=== PATIENT | female | born 1960 | race Caucasian/White ===

== ENCOUNTER 2020-04-29 15:41 | Outpatient (CLI) | payer OTHER, SELFPAY ==
--- NOTE | ~2020-04-29 | MM_ITS ---
EXAMINATION: MM scrn rigoberto implant BI w amarjit HISTORY: Screening mammogram TECHNIQUE: Craniocaudal and mediolateral oblique 3-D tomosynthesis images with implant displacement a nd synthetic 2-D images were generated. Craniocaudal and mediolateral oblique views of the breasts wi thout implant displacement were obtained using full field digital mammography. CAD analysis was submi tted and interpreted. COMPARISON: 07/27/2018, 05/10/2017, 04/24/2016 BREAST PARENCHYMAL COMPOSITION: There are scattered areas of fibroglandular density. FINDINGS: There is no evidence of suspicious mass, calcification, or architectural distortion to sugg est malignancy in either breast. There has been no suspicious interval change. IMPRESSION: 1. No mammographic evidence of malignancy. 2. Recommend routine screening mammography in one year. BI-RADS Category 1: Negative Reviewed, dictated and finalized at location A. [employer]
== END 2020-04-29 15:42 | disposition home or self-care (01) ==
LOC: ANHIMG 15:58
PROVIDERS: PCP Internal Medicine; Visit Provider Obstetrics & Gynecology
DX: Z12.31 Encounter for screening mammogram for malignant neoplasm of breast (principal)
CPT/HCPCS: 77063; 77067

== ENCOUNTER 2021-05-30 14:50 | Outpatient (CLI) | payer OTHER, SELFPAY ==
--- NOTE | ~2021-05-30 | MM_ITS ---
EXAMINATION: MM scrn rigoberto implant BI w amarjit HISTORY: Screening mammogram TECHNIQUE: Craniocaudal and mediolateral oblique 3-D tomosynthesis images with implant displacement a nd synthetic 2-D images were generated. Craniocaudal and mediolateral oblique views of the breasts wi thout implant displacement were obtained using full field digital mammography. CAD analysis was submi tted and interpreted. COMPARISON: Comparison to multiple prior studies sequentially, with oldest reviewed study dated 04/19. BREAST PARENCHYMAL COMPOSITION: The breasts are heterogeneously dense, which may obscure small masses . FINDINGS: There is no evidence of suspicious mass, calcification, or architectural distortion to sugg est malignancy in either breast. There has been no suspicious interval change. IMPRESSION: 1. No mammographic evidence of malignancy. 2. Recommend routine screening mammography in one year. BI-RADS Category 1: Negative Reviewed, dictated and finalized at location A.
== END 2021-05-30 14:51 | disposition home or self-care (01) ==
LOC: ANHIMG 14:52
PROVIDERS: PCP Internal Medicine; Visit Provider Obstetrics & Gynecology
DX: Z12.31 Encounter for screening mammogram for malignant neoplasm of breast (principal)
CPT/HCPCS: 77063; 77067

== ENCOUNTER 2021-08-13 07:45 | Outpatient (CLI) | payer OTHER, SELFPAY ==
--- NOTE | ~2021-08-13 | DEXA_ITS ---
Bone Density Report Name: ROYAL IBRAHIM Age: 61 Sex: Female Ethnicity: White Date of : 1960 Indication: postmenopausal; screening for osteoporosis; asthma or emphysema; Referring Provider: CARLOS CARNEY Study: Bone densitometry was performed. Exam Date: August 13, 2021 Accession number: [id number] Bone Density: Region BMD T-score Z-score Classification AP Spine(L1, L2, L3) 1.148 1.2 2.7 Normal Femoral Neck (Left) 0.851 0.0 1.4 Normal Total Hip (Left) 1.026 0.7 1.7 Normal Femoral Neck (Right) 0.923 0.7 2.0 Normal Total Hip (Right) 1.015 0.6 1.7 Normal Total Hip Mean 1.020 0.7 1.7 Normal World Health Organization criteria for BMD impression classify patients as: Normal (T-score at or above -1.0), Osteopenia (T-score between -1.0 and -2.5), or Osteoporosis (T-score at or below -2.5). 10-year Fracture Risk: FRAX not reported because: All T-scores for Spine Total, Hip Total, Femoral Neck at or above -1.0 Previous Exams: Region Exam Age BMD T-score BMD Change BMD Change Date g/cm2 vs Baseline vs Previous AP Spine (L1-L3) 08/13/2021 61 1.148 1.2 -0.005 (-0.5%) -0.005 (-0.5%) 12/06/2015 55 1.153 1.2 Total Hip(Left) 08/13/2021 61 1.026 0.7 -0.036 (-3.4%) -0.036 (-3.4%) 12/06/2015 55 1.061 1.0 Total Hip(Right) 08/13/2021 61 1.015 0.6 -0.049 (-4.6%) -0.049 (-4.6%) 12/06/2015 55 1.064 1.0 *Denotes significance at 95% confidence level, LSC for AP Spine = 0.022 g/cm2, LSC for Total Hip = 0.027 g/cm2 Clinical Information Provided by Patient: Has the following medical conditions: Asthma or Emphysema Patient maximum height was 63 Menopause Age: 51 Drinks caffeinated beverages Onset of menses at age 13 Number of children 2 Impression: The patient has normal bone mass. The BMD for the Total Hip(Left) decreased, changing by -3.4% since the last DXA exam. The BMD for the Total Hip(Right) decreased, changing by -4.6% since the last DXA exam. Discussion: BONE DENSITY IS ABOVE THE MINIMUM DESIRABLE LEVEL AT ALL SKELETAL SITES TESTED. This patient?s bone mineral density is above the minimum desirable level (T-score -1.0 or better) at all sites measured. The patient should follow a healthful lifestyle (good nutrition with adequate calcium and vitamin D, and appropriate weight-bearing exercise). Follow-Up: Consider repeating this study in 3 to 4 years to reassess this patient's status, or sooner if there is s
== END 2021-08-13 07:46 | disposition home or self-care (01) ==
PROVIDERS: PCP Internal Medicine; Visit Provider Obstetrics & Gynecology
DX: Z78.0 Asymptomatic menopausal state (principal)
CPT/HCPCS: 77080

== ENCOUNTER 2022-04-01 19:49 | Emergency (ER) | payer OTHER, SELFPAY ==
[2022-04-01 20:03] VITALS: BP 134/83; PULSE 93; RESP 16; TEMP 36.2; O2SAT 98
--- NOTE | 2022-04-01 20:36 | ED.HA ---
HPI - Headache General Chief Complaint: Headache Stated Complaint: headache Time Seen by Provider: 04/01/22 20:27 History of Present Illness HPI Narrative: Patient is a 61-year-old female here for evaluation of migraine headache over the past day. Patient states that this feels identical to previous migraine headaches but it is now associated with nausea and vomiting and she has been unable to tolerate her migraine medications, which prompted ED eval. Notes countless episodes of vomiting nonbloody/nonbilious emesis. Denies abdominal pain, nausea, vomiting, fevers. Reports chronic neck pain but no worse than usual. Related Data Allergies Allergy/AdvReac Type Severity Reaction Status Date / Time meperidine Allergy Severe made pt Verified 04/01/22 20:06 mean codeine Allergy Mild vomiting Verified 04/01/22 20:06 Penicillins Allergy Mild Rash Verified 04/01/22 20:06 Sulfa (Sulfonamide Allergy Mild RASH Verified 04/01/22 20:06 Antibiotics) sulfanilamide Allergy Mild rash and Verified 04/01/22 20:06 nausea Review of Systems Review of Systems: Gen: Denies fevers or chills Eyes: Denies eye pain or visual change ENT: Denies congestion Respiratory: Denies shortness of breath or cough CV: Denies chest pain or palpitations GI: Denies abdominal pain nausea, emesis or diarrhea : denies burning, urgency, frequency or hematuria Musculoskeletal: Denies back pain or muscle pain Neuro: Reports headache. Denies numbness, tingling, weakness or focal weakness Skin: Denies rash Except as documented, all other systems reviewed and negative PMFSH Family History Family History Mother Patient's mother is in good health Father Patient's father is in good health Sibling Patient's sister is in good health Family history of diabetes mellitus in first degree relative Social History Social History Smoking status: Never smoker Second hand tobacco smoke exposure: No Alcohol intake: never Exam Narrative: APPEARANCE: Well appearing, no pain in distress, well-nourished. Head: Normocephalic and atraumatic. EYES: PERRLA/EOMI, conjunctivae clear NOSE: No nasal drainage EARS: External ear normal in appearance THROAT: Oropharynx is clear. Mucous membranes are moist. NECK: Supple. No adenopathy, no masses. RESPIRATORY: Airway patent, respirations nonlabored. Clear to auscultation bilaterally, no rales, rhonchi, wheezing. CARDIOVASCULAR: Regular rate and rhythm without murmurs, rubs, or gallops. ABDOMINAL: Normoactive bowel sounds. Soft, nontender, nondistended. No rebound tenderness or guarding. MUSCULOSKELETAL: Extremities are warm and well-perfused. Moves all extremities well. No edema. NEURO: Cranial nerves II through XII intact. 5/5 Probate Clerk strength. Normal speech. No focal neurologic deficits. SKIN: Skin is warm and dry. No rashes. PSYCHIATRIC: Normal affect/mood.. Course Vital Signs Vital signs: Vital Signs Temperature 97.1 F L 04/01/22 20:03 Pulse Rate 93 04/01/22 20:03 Respiratory Rate 16 04/01/22 20:03 Blood Pressure 134/83 04/01/22 20:03 Pulse Oximetry 98 04/01/22 20:03 Oxygen Delivery Room Air 04/01/22 20:03 Temperature 97.1 F L 04/01/22 20:03 Pulse Rate 63 04/01/22 23:00 Respiratory Rate 12 04/01/22 23:00 Blood Pressure 119/63 04/01/22 23:00 Pulse Oximetry 100 04/01/22 23:00 Oxygen Delivery Room Air 04/01/22 20:03 MDM - Headache MDM Narrative Medical decision making narrative: 51-year-old female with history of migraine headaches here for evaluation of her usual migraine but associated with nausea and vomiting, unfortunately unable to tolerate her p.o. meds. This patient presents with a headache most consistent with benign headache from either tension type headache vs migraine. No headache red flags. Neurologic exam without evidence of meningismus, AMS, focal
[2022-04-01] MEDS: SODIUM CHLORIDE 0.9% IV 1,000 ML 999 ML IV CONT (20:45)
[2022-04-01] MEDS: ONDANSETRON INJ 4 MG/2 ML VIAL IV PUSH (20:47)
[2022-04-01] MEDS: KETOROLAC 15 MG/ML VIAL (*BKC) IV PUSH (20:48)
[2022-04-01 22:06] VITALS: BP 149/87; PULSE 88; RESP 17; O2SAT 100
[2022-04-01] MEDS: SUMAtriptan SUCCINATE 25 MG TABLET 100 MG PO (22:10)
[2022-04-01 23:00] VITALS: BP 119/63; PULSE 63; RESP 12; O2SAT 100
== END 2022-04-01 23:00 | disposition home or self-care (01) ==
PROVIDERS: Emergency Provider Physician Assistant; PCP Internal Medicine
DX: G43.909 Migraine, unspecified, not intractable, without status migrainosus (principal)
CPT/HCPCS: 96361; 96374; 96375; 99284; A9270; J0131; J1885; J2405; J7030

== ENCOUNTER 2022-11-27 16:57 | Emergency (ER) | payer OTHER, SELFPAY ==
[2022-11-27 18:17] VITALS: BP 137/103; PULSE 84; RESP 18; TEMP 36.8; O2SAT 100
[2022-11-27 19:52] VITALS: BP 126/75; PULSE 86; RESP 20; TEMP 36.8; O2SAT 100
--- NOTE | 2022-11-27 21:34 | PC.NURSE ---
Pt did not want to wait any longer. Pt A&Ox4. Left before being seen.
== END 2022-11-27 21:38 | disposition left against medical advice (07) ==
PROVIDERS: PCP Internal Medicine
DX: G43.909 Migraine, unspecified, not intractable, without status migrainosus (principal)
CPT/HCPCS: 99199

== ENCOUNTER 2023-03-05 03:10 | Day surgery (SDC) | payer OTHER, SELFPAY ==
[2023-02-12 08:39] VITALS: BMI 19.8
--- NOTE | 2023-03-03 09:51 | SUR.PREOP ---
Patient called to see if she can come earlier on Mar 05. Message left on patient's voicemail.
--- NOTE | 2023-03-04 16:43 | PM.HPGS ---
History of Present Illness History of Present Illness Consent: Risks, benefits, and alternatives have been discussed and questions answered. Patient agrees to proceed with procedure. Chief complaint: fam hx colon ca Narrative: Deborah Victoria is a 62 year old female Referred for colon cancer screening. Review of Systems Review of Systems: All systems reviewed & are unremarkable except as noted in HPI and below PMFSH Family History Family History Mother Patient's mother is in good health Father Patient's father is in good health Sibling Patient's sister is in good health Family history of diabetes mellitus in first degree relative Social History Social History Smoking status: Never smoker Second hand tobacco smoke exposure: No Alcohol intake: never Substance use: unknown Substance use type: does not use Lack of Transportation: No Lack of Food: Never True Current Housing: I Have Housing Concerned About Future Housing: No Difficulty Paying Gas/Electric Bills: No Difficulty Paying for Meds: No Currently Unemployed: No Education: Trade/Vocational Certificate Difficulty w/ Childcare or Family Care: No Living arrangements: with family Spiritual care concerns: No Meds Home Medications and Allergies Home Medications Medication Instructions Recorded Confirmed Type albuterol sulfate 90 mcg/actuation 2 puff inhalation Q4-6H PRN 06/23/21 02/12/23 Rx aerosol inhaler (ProAir HFA) shortness of breath or wheezing #18 grams fluticasone 250 mcg-salmeterol 50 1 inh inhalation BID #180 ea 06/23/21 02/12/23 Rx mcg/dose blistr powdr for inhalation (Advair Diskus) azelastine 137 mcg (0.1 %) nasal 2 spray intranasal Q12H #30 mL 07/28/22 02/12/23 Rx spray aerosol sumatriptan succinate 100 mg tablet See Rx Instructions .Route 09/28/22 Rx .COMPLEX #10 tabs cefuroxime axetil 250 mg tablet 250 mg PO Q12H #20 tabs 09/30/22 02/12/23 Rx fexofenadine 180 mg tablet 180 mg PO DAILY PRN allergies 02/12/23 02/12/23 History (Katy Allergy) fluticasone propionate 50 2 spray intranasal DAILY PRN 02/12/23 02/12/23 History mcg/actuation nasal allergies spray,suspension (Flonase Allergy Relief) montelukast 10 mg tablet 10 mg PO DAILY PRN allergies 02/12/23 02/12/23 History (Singulair) Allergies Allergy/AdvReac Type Severity Reaction Status Date / Time meperidine Allergy Severe made pt Verified 03/05/23 09:21 mean codeine Allergy Mild vomiting Verified 03/05/23 09:21 Penicillins Allergy Mild Rash Verified 03/05/23 09:21 Sulfa (Sulfonamide Allergy Mild RASH Verified 03/05/23 09:21 Antibiotics) sulfanilamide Allergy Mild rash and Verified 03/05/23 09:21 nausea Exam Const: General: alert Orientation/consciousness: patient oriented x3 Resp: Auscultation: clear to auscultation bilaterally Cardio: Rate: regular rate Rhythm: regular rhythm GI: GI Palp: Yes Soft to palpation and No Tenderness to palpation present (GI) Neuro: General: patient oriented x3 Assessment and Plan Assessment and plan (1) Colon cancer screening: Code(s): Z12.11 - Encounter for screening for malignant neoplasm of colon Status: Acute Assessment and Plan: Colonoscopy with possible biopsy or polypectomy or cautery or injection of substances.
[2023-03-05 09:22] VITALS: BP 102/53; PULSE 96; RESP 20; TEMP 36.5; O2SAT 97
[2023-03-05] MEDS: LACTATED RINGERS 1,000 ML 150 ML IV CONT (09:32)
--- NOTE | 2023-03-05 09:51 | WPDANESEPPF ---
Anes - Initial Pre Proc Eval Procedure: Operation Date: 03/05/23 10:30 Proposed Procedures p Screening Colonoscopy - Dave Lopes MD Date/Time: 03/05/23 09:51 Surgeon: Dave Lopes MD Pre Op Diagnosis: fam hx colon ca Patient Data Age: 62 Gender: F Height: 1.63 m Weight: 48.5 kg Last Vital Signs Temp 97.7 F 03/05/23 09:22 Pulse 96 03/05/23 09:22 Resp 20 03/05/23 09:22 BP 102/53 L 03/05/23 09:22 Pulse Ox 97 03/05/23 09:22 O2 Del Method Room Air 03/05/23 09:22 Allergies Allergy/AdvReac Type Severity Reaction Status Date / Time meperidine Allergy Severe made pt Verified 03/05/23 09:21 mean codeine Allergy Mild vomiting Verified 03/05/23 09:21 Penicillins Allergy Mild Rash Verified 03/05/23 09:21 Sulfa (Sulfonamide Allergy Mild RASH Verified 03/05/23 09:21 Antibiotics) sulfanilamide Allergy Mild rash and Verified 03/05/23 09:21 nausea Home Medications Medication Instructions Recorded Confirmed Type albuterol sulfate 90 mcg/actuation 2 puff inhalation Q4-6H PRN 06/23/21 02/12/23 Rx aerosol inhaler (ProAir HFA) shortness of breath or wheezing #18 grams fluticasone 250 mcg-salmeterol 50 1 inh inhalation BID #180 ea 06/23/21 02/12/23 Rx mcg/dose blistr powdr for inhalation (Advair Diskus) azelastine 137 mcg (0.1 %) nasal 2 spray intranasal Q12H #30 mL 07/28/22 02/12/23 Rx spray aerosol sumatriptan succinate 100 mg tablet See Rx Instructions .Route 09/28/22 Rx .COMPLEX #10 tabs cefuroxime axetil 250 mg tablet 250 mg PO Q12H #20 tabs 09/30/22 02/12/23 Rx fexofenadine 180 mg tablet 180 mg PO DAILY PRN allergies 02/12/23 02/12/23 History (Katy Allergy) fluticasone propionate 50 2 spray intranasal DAILY PRN 02/12/23 02/12/23 History mcg/actuation nasal allergies spray,suspension (Flonase Allergy Relief) montelukast 10 mg tablet 10 mg PO DAILY PRN allergies 02/12/23 02/12/23 History (Archieir) Patient hx anesthesia problems: none Family hx anesthesia problems: none Results Review: All pre-operative results and documents have been reviewed as part of the pre-operative evaluation. [facility] Family History Family History Mother Patient's mother is in good health Father Patient's father is in good health Sibling Patient's sister is in good health Family history of diabetes mellitus in first degree relative Social History Social History Smoking status: Never smoker Second hand tobacco smoke exposure: No Alcohol intake: never Substance use: unknown Substance use type: does not use Lack of Transportation: No Lack of Food: Never True Current Housing: I Have Housing Concerned About Future Housing: No Difficulty Paying Gas/Electric Bills: No Difficulty Paying for Meds: No Currently Unemployed: No Education: Trade/Vocational Certificate Difficulty w/ Childcare or Family Care: No Living arrangements: with family Spiritual care concerns: No Anes - Eval Final PreProcedure Day of Procedure 03/05/23 09:51 Patient weight: normal Heart: regular rate and rhythm Lungs: clear to auscultation Airway: Mallampati scale class II Neurological: alert and oriented Last oral intake: >/= 8 hours ASA classification: II Emergent: no Anesthetic plan: proceed Anesthesia type and monitoring: general GIVS and standard monitoring Results Review: All pre-operative results and documents have been reviewed as part of the pre-operative evaluation. Informed Consent: The patient's anesthetic plan and its attendant risks and benefits were discussed with the patient/family/POA. Questions were solicited and answers provided to the satisfaction of the patient/family/POA.
[2023-03-05 10:35] VITALS: BP 99/56; PULSE 73; RESP 20; O2SAT 98
[2023-03-05 10:45] VITALS: BP 101/56; PULSE 81; RESP 20; O2SAT 99
[2023-03-05 10:55] VITALS: BP 117/71; PULSE 62; RESP 15; O2SAT 100
== END 2023-03-05 11:00 | disposition home or self-care (01) ==
PROVIDERS: PCP Internal Medicine; Referring Provider Obstetrics & Gynecology Gynecology; Visit Provider Internal Medicine Gastroenterology
PROC: 0DJD8ZZ Inspection of Lower Intestinal Tract, Via Natural or Artificial Opening Endoscopic (ICD-10-PCS; CPT 45378; principal; 2023-03-05 10:30)
DX: Z12.11 Encounter for screening for malignant neoplasm of colon (principal); Z80.0 Family history of malignant neoplasm of digestive organs; K64.8 Other hemorrhoids
CPT/HCPCS: 45378; J2704; J7120

== ENCOUNTER 2023-05-27 15:50 | Outpatient (CLI) | payer OTHER, SELFPAY ==
--- NOTE | ~2023-05-27 | XR_ITS ---
AP and oblique views of the bilateral ribs, and PA chest radiograph Clinical History: Pain Findings: No rib fracture is seen. Osseous alignment is anatomic. Lungs are clear, without focal cons olidation or pleural effusion. Cardiomediastinal contour is within normal limits. Soft tissues are un remarkable. Impression: No rib fracture is seen. Clear lungs. Reviewed, dictated and finalized at [facility]. Impression: No rib fracture is seen. Clear lungs.
== END 2023-05-27 15:51 ==
PROVIDERS: PCP Physician Assistant; Visit Provider Physician Assistant
DX: R07.9 Chest pain, unspecified (principal)
CPT/HCPCS: 71111

== ENCOUNTER 2023-06-04 08:14 | Outpatient (CLI) | payer OTHER, SELFPAY ==
--- NOTE | ~2023-06-04 | CT_ITS ---
EXAMINATION: CT abdomen pelvis w con DATE: 06/04/2023 13:09 INDICATION: Unspecified abdominal pain. Weight loss. Right flank pain. TECHNIQUE: Computed tomography (CT) of the abdomen and pelvis was performed with 100 L Omnipaque 350 intravenous contrast. Automated exposure control and iterative reconstruction technique were employed . The dose-length product was 204.62 mGy-cm. COMPARISON: None. FINDINGS: The visualized portions of the lung bases demonstrate mild atelectasis in right lower lobe. No pleural effusion. The heart size is normal. No pericardial effusion. Breast implants are noted. T he liver, gallbladder, spleen, pancreas, adrenal glands are normal. There are cysts in the kidneys me asuring up to 6 mm on the left. There are no dilated loops of bowel. The appendix is normal. The karen uterine and left ovarian veins are enlarged, consistent with pelvic venous insufficiency. There are n o pathologically enlarged lymph nodes. There is no free intraperitoneal fluid. There is severe thorac ic and lumbar spondylosis. Thoracolumbar dextroscoliosis is noted. IMPRESSION: 1. Pelvic venous insufficiency. Reviewed, dictated and finalized at location A.
[2023-06-04 08:31] LABS: Estimated Glomerular Filt Rate 56
== END 2023-06-04 08:15 ==
PROVIDERS: PCP Physician Assistant; Visit Provider Physician Assistant
DX: R10.9 Unspecified abdominal pain (principal); I87.2 Venous insufficiency (chronic) (peripheral)
CPT/HCPCS: 74177; Q9967

== ENCOUNTER 2024-09-21 07:48 | Outpatient (CLI) | payer OTHER, SELFPAY ==
--- OUTSIDE RECORDS SUMMARY | 2024-09-21 07:51 | XMS_ITS | Clinical Summary ---
Author Organization [facility] Virtual Care Address [address] [place] [address] Phone Care Team Providers Care Graduate Advisor Name Role Phone Malinda Coles MD Unavailable [phone] Rivera Sauceda DO Primary Care Provider [phone] Allergies Active Allergy Reactions Criticality Noted Date Comments Atorvastatin Headache Low 02/02/2022 Codeine Nausea & Vomiting Medium Penicillins Swelling Medium Sulfa (Sulfonamide Antibiotics) Swelling Medium Medications albuterol HFA (PROAIR HFA) 90 mcg/actuation inhaler inhale 2 puff by inhalation route every 4 - 6 hours as needed 0 Inhaler 0 6 Active ADVAIR DISKUS 250-50 mcg/dose diskus inhaler Take 1,000 puffs by mouth daily 11 7 Active montelukast (SINGULAIR) 10 mg tablet Take 1 tablet (10 mg total) by mouth daily 7 Active SUMAtriptan (IMITREX) 100 mg tabletIndicatio ns:Migraine Take 1 tablet (100 mg total) by mouth once as needed for migraine Active aspirin 81 mg enteric coated tabletIndicatio ns:Anomalous origin of coronary artery,History of non-ST elevation myocardial infarction (NSTEMI) Take 1 tablet (81 mg total) by mouth daily 30 tablet 11 3 Active Additional Information Patient not taking.Reported on 09/19/2024 inclisiran (Leqvio) 284 mg/1.5 mL syringe Inject 1.5 mL (284 mg total) under the skin every 6 (six) months Active Active Problems Problem Noted Date Diagnosed Date History of non-ST elevation myocardial infarctio n (NSTEMI) 10/26/2022 Hyperlipidemia LDL goal <70 07/07/2018 Migraine 07/07/2018 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 Asthma 12/30/2015 Overview (06/12/2016): Uncomplicated asthma, unspecified asthma severity 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 Overview (06/12/2016): Anomalous right coronary artery Encounters Date Type Department Care Team Description 09/19/2024 1:00 PM CDT Office Visit [facility] Cardiology [address] [place] [address] Pham Aguilera NP History of non-ST elevation myocardial infarction (NSTEMI); Anomalous right coronary artery; Hyperlipidemia LDL goal <70; Lipid screening from Last 3 Months Surgical History Surgery Date Site/Laterality Comments AUGMENTATION MAMMAPLASTY Medical History Medical History Date Comments Hx Other Medical seasonal allerg ies, asthma, anomalous right ling; Comments: [facility] 12/30/2015 - Asthma Family History Medical History Relation Name Comments Other Brother 2 Alive and well; Other Father Alive and well; Breast cancer Maternal Grandmother Other Mother Alive and well; Other Sister 2 Alive and well; Relation Name Status Comments Brother 1 Alive Brother 2 Father Alive Maternal Grandmother Mother Alive Sister 1 Alive Sister 2 Social History Tobacco Use Types Packs/Day Years Used Date Smoking Tobacco: Never Smokeless Tobacco: Never Tobacco Cessation:Counseling Given: Not Answered Alcohol Use Standard Drinks/Week Comments No 0 (1 standard drink = 0.6 oz pur e alcohol) Comments No Sex and Gender Information Value Date Recorded Sex Assigned at Not on file 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 Gender Identity Not on file Sexual Orientation Not on file Obstetrics History Para Term AB IAB SAB Ectopic Multiple Livin g Live Births 2 2 2 Date Outcome GA Total Labor Labor/2nd/3rd Weight Sex Type Anes PTL Katalina A1 A5 Name Clin Term Term Last Filed Vital Signs Vital Sign Reading Time Taken Comments Blood Pressure 102/64 09/19/2024 12:58 PM CDT Pulse 76 09/19/2024 12:58 PM CDT Temperature - - Respiratory Rate 12 08/31/2016 10:10 AM CDT Oxygen Saturation 96% 09/19/2024 12:58 PM CDT Inhaled Oxygen Concentration - - Weight 50.3 kg (111 lb) 09/19/2024 12:58 PM CDT Height 162.6 cm (5' 4) 09/19/2024 12:58 PM CDT Body Mass Index 19.05 09/19/2024 12:58 PM CDT Plan of Treatment Health Maintenance Due Date Last Done Comments Cervical Cancer Screening 1959 Colon Cancer Screening-Colonoscopy 1959 Depression Screening 1959 Fall Risk Assessment 1959 Hepatitis C Screening 1959 Osteoporosis Screening-Bone Density Scan 1959 DTaP/Tdap/Td Vaccine (1 - Tdap) 07/07/1970 Hepatitis B Screening 07/07/1977 Pneumococcal vaccine 65+ (1 of 2 - PCV) 07/07/1978 Zoster Vaccine (1 of 2) 07/07/2009 Well Visit 65+ 07/07/2024 Breast Cancer Screening-Mammogram 09/05/2024 024, 09/02/2022 Influenza Vaccine (#1) 2024 8, 12/11/2016, 12/13/2015 Procedures Procedure Name Priority Date/Time Associated Diagnosis Comments POCT LIPID PANEL Routine 09/19/2024 1:04 PM CDT Lipid screening SCREENING MAMMOGRAM BILATERAL W MARITZA W IMPLANTS Schedule Routine, Read Routine (OP Routine) 09/06/2023 1:45 PM CDT Screening mammogram, encounter for from Last 3 Months or Most Recently Relevant to Health Maintenance Results * POCT lipid panel (09/19/2024 1:04 PM CDT) Cholesterol, POC 169 <200 MG/DL HDL, POC 60 >=40 mg/dL Triglycerides, POC 93 <=149 mg/dL LDL Cholesterol POC 91 <=129 mg/dL Chol/HDL Ratio, POC 1.5 NONE Non-HDL Cholesterol, POC 109 NONE mg/dL Cholesterol Total, POC 169 30 - 199 mg/dL Capillary blood 09/19/2024 1 :04 PM CDT Pham Aguilera NP POINT OF CARE TEST ORDERA BLERufino Final Result * Screening Mammogram Bilateral W Maritza W Implants (09/06/2023 1:45 PM CDT) Anatomical Region Laterality Modality Breast Bilateral Mammography Impressions 09/06/2023 1:51 PM CDT BI-RADS ATLAS category (overall): 2 - Benign There is no mammographic evidence of malignancy. A 1 year screening mammogram is recommended. The patient has been or will be contacted. We recommend annual screening mammography for women at average risk of breast cancer beginning at age 40, based on guidelines of the [employer] (ACR Practice Parameter for the Performance of Screening and Diagnostic Mammography) and [employer]. For women with and elevated risk of breast cancer, please refer to the ACR Practice Parameter for specific screening recommendations. The patient will be entered into a reminder system with a target due date of 1 year for her next screening exam. Narrative 09/06/2023 1:51 PM CDT Screening Mammogram Bilateral W Maritza W Implants: 09/06/23 The study was acquired using full field digital technology and interpreted from soft copy. 2D digital mammographic views, as well as 3D digital tomosynthesis were performed in the CC and MLO projections. CLINICAL: Screening mammogram, encounter for. No relevant medical history has been documented for this patient. History of breast cancer in Maternal Grandmother. COMPARISONS: 09/02/2022 Screening Mammogram Bilateral W Maritza W Implants 05/30/2021 Breast Imaging Screening Outside Reference 04/29/2020 Breast Imaging Screening Outside Reference 07/27/2018 Breast Imaging Screening Outside Reference 05/10/2017 Breast Imaging Screening Outside Reference 04/24/2016 Breast Imaging Screening Outside Reference BREAST TISSUE: The breasts are heterogeneously dense, which may obscure small masses. FINDINGS: Bilateral breast subpectoral saline implants are unchanged in appearance and intact. The presence of implants limits the sensitivity of mammography. No suspicious masses, suspicious calcifications, or other suspicious findings are seen within either breast. There has been no suspicious change. us Self Screening Mammogram IMG MAMMO PROCEDURES Fi nal Result from Last 3 Months or Most Recently Relevant to Health Maintenance Insurance [facility] CHOICE PLUS [facility] H[facility]/PPO Address: [place] [address] Care Teams Graduate Advisor Relationship Specialty Start Date End Date Rivera Sauceda DO [address] [facility] [address] [place] [address] PCP - General Internal Medicine 02/02/24 Malinda Coles MD [address] [facility] [address] [place] [address] Referring Physician Gynecology 09/02/22
--- OUTSIDE RECORDS SUMMARY | 2024-09-21 07:51 | XMS_ITS | Referral Summary ---
Author Organization [facility] Virtual Care Address [address] [place] [phone] Phone Care Team Providers Care Dry Cleaning Attendant Name Role Phone Malinda Coles MD Unavailable [phone] Rivera Sauceda DO Primary Care Provider [phone] Encounters Date Type Department Care Team Description 09/19/2024 1:00 PM CDT Office Visit [facility] Cardiology [address] [facility] [address] [place] [address] Pham Aguilera NP History of non-ST elevation myocardial infarction (NSTEMI); Anomalous right coronary artery; Hyperlipidemia LDL goal <70; Lipid screening from Last 3 Months Allergies Active Allergy Reactions Criticality Noted Date Comments Atorvastatin Headache Low 02/02/2022 Codeine Nausea & Vomiting Medium Penicillins Swelling Medium Sulfa (Sulfonamide Antibiotics) Swelling Medium Medications albuterol HFA (PROAIR HFA) 90 mcg/actuation inhaler inhale 2 puff by inhalation route every 4 - 6 hours as needed 0 Inhaler 0 6 Active ADVAIR DISKUS 250-50 mcg/dose diskus inhaler Take 1,000 puffs by mouth daily 7 Active montelukast (SINGULAIR) 10 mg tablet Take 1 tablet (10 mg total) by mouth daily 11 7 Active SUMAtriptan (IMITREX) 100 mg tabletIndicatio [...] 12/30/2015 Overview (06/12/2016): Anomalous right coronary artery Social History Tobacco Use Types Packs/Day Years Used Date Smoking Tobacco: Never Smokeless Tobacco: Never Tobacco Cessation:Counseling Given: Not Answered Alcohol Use Standard Drinks/Week Comments No 0 (1 standard drink = 0.6 oz pur e alcohol) Comments No Sex and Gender Information Value Date Recorded Sex Assigned at Not on file 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 For women [...] Most Recently Relevant to [place] [address] [facility] [place] [address] Care Teams Dry Cleaning Attendant Relationship Specialty Start Date End Date Rivera Sauceda DO [address] [facility] [address] [place] [address] PCP - General Internal Medicine 02/02/24 Malinda Coles MD [address] [place] [address] Referring Physician Gynecology 09/02/22
== END 2024-09-21 07:49 | disposition home or self-care (01) ==
PROVIDERS: PCP Internal Medicine; Visit Provider Internal Medicine
DX: H91.90 Unspecified hearing loss, unspecified ear (principal)
CPT/HCPCS: 92557; 92567